=== PATIENT | female | born 1995 | race African-American/Black ===

== ENCOUNTER 2016-05-20 00:34 | Emergency (ER) | payer MEDICAID, OTHER ==
[~2016-05-20] VITALS: Ht 160 cm; Wt 70.0 kg
[~2016-05-20 00:34] MED LIST: DEXTLIQ PO; MULT1TAB46; ORTHTAB2; ZITH250T PO
[2016-05-20 00:35] VITALS: BP 128/83; PULSE 98; RESP 20; TEMP 98.6; O2SAT 100
--- NOTE | 2016-05-20 01:08 | PD ---
HPI Chief Complaint: Skin Problem Time Seen by Provider: 01:03 Travel History International Travel<30 days: No Contact w/Intl Traveler<30days: No Traveled to known affect area: No History of Present Illness HPI 21-year-old white female presents to emergency department with a tender lump in her left inner thigh that she noticed today. She has had a history of skin abscesses in the past. She has had no fever chills. No drainage. It is mild. No alleviating or aggravating activity PFSH Past Medical History Narrative Medical Skin abscess Tetanus Vaccination: > 5 Years ?: Not Past Surgical History Surgical History: No Previous Surgery Social History Alcohol Use: No Tobacco Use: No Substance Use: No Allergies-Medications (Allergen,Severity, Reaction): Coded Allergies: Penicillin (Verified Allergy, Mild, Rash, 05/20/16) Reported Meds & Prescriptions Reported Meds & Active Scripts Active No Active Prescriptions or Reported Medications Review of Systems Except as stated in HPI: all other systems reviewed are Neg Physical Exam Narrative GENERAL: This is a well-nourished, well-developed patient, in no apparent distress. Patient's examined with Mis russo nurse present SKIN: No rashes, ecchymoses or lesions. Warm and dry. Patient has a tender 1 cm left groin superficial abscess. No fluctuance or pointing. HEAD: Atraumatic. Normocephalic. EYES: PERRL, EOMI, no discharge or injection. No scleral icterus. EARS: Clear NOSE: Nasal turbinates appear normal. THROAT: Mucosa pink and moist. Airway patent. NECK: Trachea midline. supple, moves head freely. LUNGS: Clear to auscultation. CV: Regular in rhythm. ABDOMEN: Soft nontender. EXT: No clubbing cyanosis or edema. Data Data Last Documented VS Vital Signs Date Time Temp Pulse Resp B/P Pulse Ox O2 Delivery O2 Flow Rate FiO2 05/20/16 00:46 18 05/20/16 00:35 98.6 98 128/83 100 MDM Medical Decision Making Medical Screen Exam Complete: Yes Emergency Medical Condition: Yes Medical Record Reviewed: Yes Differential Diagnosis MDM: High Differential diagnoses: Abscess, folliculitis, cellulitis, lymphangitis, abrasion, contact dermatitis Narrative Course Patient is given Bactrim DS and Keflex 500 mg by mouth. This is left groin abscess Diagnosis Primary Impression: Abscess of left groin Patient Instructions: General Instructions Additional Instructions: Rest. Elevation. keep clean and dry. Ichthammol Daily wound care with soap, and water. Three Advil every 6 hours. Bactrim DS and Keflex. Follow-up with a primary care doctor in one week. Return to the ER for any problems. Med/Other Pt SpecificInfo: Prescription(s) given Scripts No Active Prescriptions or Reported Meds Disposition: 01 DISCHARGE HOME Condition: Stable Theo Aldana May 20, 2016 01:08
[2016-05-20] MEDS ORDERED: CEPH-460 PO (01:10)
[2016-05-20] MEDS ORDERED: BACT800T5 PO (01:10)
[2016-05-20] MEDS ORDERED: SULFAMETHOXAZOLE-TRIMETHOPRIM DS 800-160 MG TAB PO ONE (01:15)
[2016-05-20] MEDS ORDERED: CEPHALEXIN MONOHYDRATE 500 MG CAP PO ONE (01:15)
== END 2016-05-20 01:30 | disposition home or self-care (01) ==
LOC: NEPB 00:34
DX: L02.214 Cutaneous abscess of groin (principal)
CPT/HCPCS: 99283